=== PATIENT | female | born 2000 | race Caucasian/White ===

== ENCOUNTER 2024-11-03 21:07 | Emergency (ER) | payer MEDICAID, OTHER ==
[~2024-11-03] VITALS: Ht 152.4 cm; Wt 50.2 kg
[2024-11-03] MEDS ORDERED: diphenhdrAMINE HCL 50 MG/1 ML VL IV ONE (21:30)
--- NOTE | 2024-11-03 21:31 | ED.PDOC ---
HPI Allergic reaction HPI Comments C/C of allergic reaction at 2041. Pt states she was at a [employer] restaurant and had food containing milk products. Pt administered Epi-Pen at 2041. VSS. Pt nervous upon Triage assessment. Denies SOB, CP, N/V. Admits to throat itchiness. No urticaria noted. Chief Complaint: Allergic Reaction Time Seen by MD: 21:11 Reviewed Notes: Nurses Notes, Medications, Allergies Allergies: Coded Allergies: Milk (Cow) (Verified Allergy, Severe, 11/03/24) Information Source: Patient Past Medical History PAST MEDICAL HISTORY: Denies Surgical History: Denies all surgeries LUMBER STRAIGHTENED History: No Pertinent LUMBER STRAIGHTENED History Family History Family History: Reviewed,noncontributory to illness Social History Smoker: Non-Smoker Alcohol: Denies ETOH Use Drugs: Denies Drug Use Constitutional: denies: chills, diaphoresis, fatigue, fever, malaise, sweats, weakness, others EENTM: reports: throat swelling; denies: blurred vision, double vision, ear bleeding, ear discharge, ear drainage, ear pain, ear ringing, eye pain, eye redness, hearing loss, mouth pain, mouth swelling, nasal discharge, nose bleeding, nose congestion, nose pain, photophobia, tearing, throat pain, voice changes, others Respiratory: reports: shortness of breath; denies: cough, hemoptysis, orthopnea, SOB at rest, SOB with excertion, stridor, wheezing, others Cardiovascular: denies: chest pain, dizzy spells, diaphoresis, Dyspnea on exertion, edema, irregular heart beat, left arm pain, lightheadedness, palpitations, PND, syncope, others Gastrointestinal: denies: abdomen distended, abdominal pain, blood streaked bowels, constipated, diarrhea, dysphagia, difficulty swallowing, hematemesis, melena, nausea, poor appetite, poor fluid intake, rectal bleeding, rectal pain, vomiting, others Genitourinary: denies: abnormal vagina bleeding, burning, dyspareunia, dysuria, flank pain, frequency, hematuria, incontinence, pain, , vagina discharge, urgency, others Neurological: denies: dizziness, fainting, headache, left sided numbness, left sided weakness, numbness, paresthesia, pre-existing deficit, right sided numbness, right sided weakness, seizure, speech problems, tingling, tremors, weakness, others Musculoskeletal: denies: back pain, gout, joint pain, joint swelling, muscle pain, muscle stiffness, neck pain, others Integumetry: denies: bruises, change in color, change in hair/nails, dryness, laceration, lesions, lumps, rash, wounds, others Allergic/Immunocompromised: denies: Difficulty Healing, Frequent Infections, Hives, Itching, others Hematologic/Lymphatic: denies: anemia, blood clots, easy bleeding, easy bruising, swollen glands, others Endocrine: denies: excessive hunger, excessive sweating, excessive thirst, excessive urination, flushing, intolerance to cold, intolerance to heat, unexplained weight gain, unexplained weight loss, others Psychiatric: denies: anxiety, bipolar disorder, depression, hopeless, panic disorder, schizophrenia, sleepless, suicidal, others Physical Exam General Appearance: No Apparent Distress, Normal HEENT: Normal ENT Inspection, Pharynx Normal, TMs Normal Neck: Full Range of Motion, Non-Tender Respiratory: Chest Non-Tender, Lungs Clear, No Accessory Muscle Use, No Respiratory Distress, Normal Breath Sounds Cardiovascular: No Edema, No JVD, No Murmur, No Gallop, Normal Peripheral Pulses, Tachycardia Breast Exam: Deferred Gastrointestinal: No Organomegaly, Non Tender, No Pulsatile Mass, Normal Bowel Sounds, Soft Genitalia: Deferred Pelvic: Deferred Rectal: Deferred Extremities: Normal capillary refill, Normal inspection, Normal range of motion, Non-tender, No pedal edema Musculoskeletal : Apperance: Normal Neurologic: Alert, No Motor Deficits, Normal Affect, Normal Mood, No Sensory Deficits Cerebellar Function: Normal Reflexes: Normal Skin: Dry, Normal Color, Warm Lymphatic: No Adenopathy Was a procedure done? Was a procedure done?: No Differential diagnosis (all) Differential Diagnosis: Anaphylaxis, Angioedema, Bronchospasm X-Ray, Labs, Meds, VS Vital Signs Date Time Temp Pulse Resp B/P (MAP) Pulse Ox O2 Delivery O2 Flow Rate FiO2 11/03/24 22:25 81 17 96 Room Air* 0 21 11/03/24 22:25 97.6 81 17 118/82 (94) 97 97.6 11/03/24 21:07 97.6 81 17 118/82 (94) 96 97.6 Current Medications Medications (Trade) Dose Ordered Sig/Nikkie Route Start Time Stop Time Status Last Admin Sodium Chloride 1,000 ml @ 1,000 mls/hr Q1H ONCE IV 11/03/24 21:30 11/03/24 22:29 DC 11/03/24 22:12 Methylprednisolone Sodium Succinate (Solu Medrol) 125 mg ONCE ONCE IV 11/03/24 21:30 11/03/24 21:31 DC 11/03/24 22:11 Famotidine (Pepcid Injection) 20 mg ONCE ONCE IV 11/03/24 21:30 11/03/24 21:31 DC 11/03/24 22:12 X-Ray, Labs, Meds, VS Comment Patient given 1 L of normal saline, Solu-Medrol 125 IV push, and Pepcid 20 mg IV push patient stated she took 50 mg of Benadryl prior to arrival along with her epi pen x1. Patient reports improvement in symptoms notes no feeling of throat swelling, chest pain or shortness of breath. She is requesting discharge at this time. Script trial of Medrol Dosepak and Pepcid x6 days. Advised to follow up with her PCP for refill of her EpiPen. Advised to take medications as prescribed side effects discussed. Advised to rest increase p.o. fluids with electrolytes., and avoid milk products ER return precautions given patient indicates understanding agrees with discharge plan of care. Time of 1ST Reevaluation: 21:29 Reevaluation 1ST: Unchanged Time of 2ND Reevaluation: 23:06 Reevaluation 2ND: Improved Patient Education/Counseling: Diagnosis, Treatment, Prognosis, Need For Follow Up Family Education/Counseling: Diagnosis, Treatment, Prognosis, Need For Follow Up Departure 1 Departure Time of Disposition: 23:09 Impression: Primary Impression: Allergic reaction Qualified Codes: T78.40XA - Allergy, unspecified, initial encounter Disposition: HOME / SELF CARE / HOMELESS Condition: Stable e-Prescriptions Famotidine (PEPCID TABLET) 20 Mg Tb 1 TAB PO BID for 6 Days, #12 TAB Prov: GENTRY GRAHAM 11/03/24 Methylprednisolone (Medrol Dosepak) 4 Mg Jared 4 MG PO UD for 6 Days, #21 TAB UAD Prov: GENTRY GRAHAM 11/03/24 Discharged With: Relative (Mother) Critical Care Note Critical Care Time?: No Stability Stability form required: No GENTRY GRAHAM Nov 03, 2024 21:31
[2024-11-03] MEDS: methylPREDNISolone SOD SUCC 125 MG/2 ML VL IV ONE (22:11)
[2024-11-03] MEDS: SODIUM CHLORIDE 0.9% 1,000 ML IV ONE (22:12)
[2024-11-03] MEDS: FAMOTIDINE (10MG/ML) 2ML VL IV ONE (22:12)
[2024-11-03 22:25] VITALS: BP 118/82; PULSE 81; RESP 17; TEMP 97.6; O2SAT 96
[2024-11-03] MEDS ORDERED: METH4PAK PO (23:11)
[2024-11-03] MEDS ORDERED: FAMO20TA10 PO (23:11)
== END 2024-11-03 23:18 | disposition home or self-care (01) ==
LOC: ER 21:07
DX: L29.9 Pruritus, unspecified (principal); T78.1XXA Other adverse food reactions, not elsewhere classified, initial encounter; Z91.011 Allergy to milk products; X58.XXXA Exposure to other specified factors, initial encounter
CPT/HCPCS: 96361; 96374; 96375; 99284; J2919; J3490; J7030

== ENCOUNTER 2024-12-03 13:42 | Emergency (ER) | payer MEDICAID ==
[~2024-12-03] VITALS: Ht 152.4 cm; Wt 85.3 kg
--- NOTE | 2024-12-03 16:24 | ED.PDOC ---
Back pain HPI HPI Comments A 24 year-old female presents to the ED with a chief complaint of lower back pain as of X1 week ago. Patient states pain was spontaneous, constant, with pain increasing when laying or standing. Patient has no further complaints at this time and otherwise denies further associated symptoms of chest pain, hematuria, dysuria, abdominal pain, or chest pain. Chief Complaint: Back Pain Time Seen by MD: 16:19 Reviewed Notes: Medications, Allergies Allergies: Coded Allergies: Milk (Cow) (Verified Allergy, Severe, 11/03/24) Home Meds Active Scripts Cyclobenzaprine Hcl (Cyclobenzaprine Hcl) 10 Mg Tab, 10 MG PO TID for 10 Days, #30 TAB Prov:ARIADNA PAVON MD 12/03/24 Prednisone (Prednisone) 20 Mg Tab, 20 MG PO BID for 5 Days, #10 MG Prov:ARIADNA PAVON MD 12/03/24 Information Source: Patient Mode of Arrival: Ambulatory Timing: Weeks (1) Duration: Since onset Location of Back pain: (R) Lower back, (L) Lower back Severity: Moderate Onset: Spontaneous Past Medical History PAST MEDICAL HISTORY: Denies Surgical History: Denies all surgeries GASOLINE TESTER History: No Pertinent GASOLINE TESTER History Family History Family History: Reviewed,noncontributory to illness Social History Smoker: Non-Smoker Alcohol: Denies ETOH Use Drugs: Denies Drug Use Constitutional: denies: chills, diaphoresis, fatigue, fever, malaise, sweats, weakness, others EENTM: denies: blurred vision, double vision, ear bleeding, ear discharge, ear drainage, ear pain, ear ringing, eye pain, eye redness, hearing loss, mouth pain, mouth swelling, nasal discharge, nose bleeding, nose congestion, nose pain, photophobia, tearing, throat pain, throat swelling, voice changes, others Respiratory: denies: cough, hemoptysis, orthopnea, SOB at rest, shortness of breath, SOB with excertion, stridor, wheezing, others Cardiovascular: denies: chest pain, dizzy spells, diaphoresis, Dyspnea on exertion, edema, irregular heart beat, left arm pain, lightheadedness, palpitations, PND, syncope, others Gastrointestinal: denies: abdomen distended, abdominal pain, blood streaked bowels, constipated, diarrhea, dysphagia, difficulty swallowing, hematemesis, melena, nausea, poor appetite, poor fluid intake, rectal bleeding, rectal pain, vomiting, others Genitourinary: denies: abnormal vagina bleeding, burning, dyspareunia, dysuria, flank pain, frequency, hematuria, incontinence, pain, , vagina discharge, urgency, others Neurological: denies: dizziness, fainting, headache, left sided numbness, left sided weakness, numbness, paresthesia, pre-existing deficit, right sided numbness, right sided weakness, seizure, speech problems, tingling, tremors, weakness, others Musculoskeletal: reports: back pain; denies: gout, joint pain, joint swelling, muscle pain, muscle stiffness, neck pain, others Integumetry: denies: bruises, change in color, change in hair/nails, dryness, laceration, lesions, lumps, rash, wounds, others Allergic/Immunocompromised: denies: Difficulty Healing, Frequent Infections, Hives, Itching, others Hematologic/Lymphatic: denies: anemia, blood clots, easy bleeding, easy bruising, swollen glands, others Endocrine: denies: excessive hunger, excessive sweating, excessive thirst, excessive urination, flushing, intolerance to cold, intolerance to heat, unexplained weight gain, unexplained weight loss, others Psychiatric: denies: anxiety, bipolar disorder, depression, hopeless, panic disorder, schizophrenia, sleepless, suicidal, others All Other Systems: Reviewed and Negative Physical Exam General Appearance: Moderate Distress HEENT: Normal ENT Inspection, PERRL/EOMI Neck: Full Range of Motion, Non-Tender, Normal, Normal Inspection Respiratory: Chest Non-Tender, Lungs Clear, No Accessory Muscle Use, No Respiratory Distress, Normal Breath Sounds Cardiovascular: No Edema, No JVD, No Murmur, No Gallop, Normal Peripheral Pulses, Regular Rate/Rhythm Breast Exam: Deferred Gastrointestinal: No Organomegaly, Non Tender, No Pulsatile Mass, Normal Bowel Sounds, Soft Genitalia: Deferred Pelvic: Deferred Rectal: Deferred Extremities: No calf tenderness, Normal capillary refill, Normal inspection, Normal range of motion, Non-tender, No pedal edema Musculoskeletal : Extremity Location: Back Apperance: Limited ROM, Tenderness: Moderate, Other (For past week spontaneously the patient started having really patient constant back pain can not the bed can sit can not walk can not sleep) Neurologic: Alert, Depressed Affect Cerebellar Function: Normal Reflexes: NOT DONE Skin: Dry, Normal Color, Warm Peripheral Pulses: 1+ carotid (R), 1+ carotid (L) Lymphatic: No Adenopathy Was a procedure done? Was a procedure done?: No Back Pain Differential Dx Differential Diagnosis: DJD, Fracture, Musculoskeletal Pain, Strain X-Ray, Labs, Meds, VS Vital Signs Date Time Temp Pulse Resp B/P (MAP) Pulse Ox O2 Delivery O2 Flow Rate FiO2 12/03/24 13:54 98.2 104 18 114/60 (78) 96 98.2 [place] [address] Ph: [phone] DIAGNOSTIC IMAGING Diagnostic Imaging Report : [id number] Signed PATIENT: KEVIN TAMAYO ACCT: [id number] UNIT: [id number] : 2000 LOC: ER ROOM / BED: / AGE / SEX: 24 / F ADM STATUS: REG ER SERVICE [id number] ORDERING PHYSICIAN: ARIADNA PAVON MD PROCEDURE(s): LS2CT - LS SPINE WO CONTRAST REASON: Severe back pain ORDER NUMBER(s): [id number], ACCESSION NUMBER(s): [id number] EXAM: CT LS SPINE WO CONTRAST INDICATION: Severe back pain TECHNIQUE: Axial images of the lumbar spine have been obtained along with coronal and sagittal reformatted images. CT scans at this facility use dose modulation, iterative reconstruction, and/or weight based dosing when appropriate to reduce radiation dose to as low as reasonably achievable. Dose: CTDI: 32.9. DLP: 103.78 COMPARISON: None FINDINGS: 5 [id number] lumbar-type vertebrae. Straightening of the lumbar lordosis. Vertebral body heights are maintained. No evidence of acute traumatic fractures or spondylolisthesis. Sclerotic focus of the Right posterior rib 12 which may represent a bone island with a blastic lesion not excluded. No significant spinal canal or neural foramina stenosis. The paraspinal muscles are unremarkable. Mild nonspecific lower back Subcutaneous fat edema. IMPRESSION: No evidence of acute traumatic fractures or spondylolisthesis. X-Ray, Labs, Meds, VS Comment Seen in the emergency department eventful patient came in complaining of severe back pain for week spontaneous never had any injuries and she has been very impaired at this time CT of the lumbar spine is normal Patient will be discharged home to follow up with her PCP Time of 1ST Reevaluation: 16:19 Reevaluation 1ST: Unchanged Time of 2ND Reevaluation: 18:13 Reevaluation 2ND: Improved Consultation: PCP Patient Education/Counseling: Diagnosis, Treatment, Prognosis, Need For Follow Up Family Education/Counseling: Diagnosis, Treatment, Prognosis, Need For Follow Up, No Family Present SEPSIS Sepsis Screen Date sepsis recognized/suspect: Dec 03, 2024 Time Sepsis recognized/suspect: 135 Recent Procedure: No On Antibiotic Therapy: No Respiratory Rate >20: No Heart Rate >90: Yes Temp<36 C (96.8 F) or >38.3 C: No SBP <90 or MAP <65 mmHG: No New Acute Mental Status Change: No Is the patient on CPAP, BIPAP,: No Physician Orders Ls Spine Wo Contrast (12/03/24 16:16) Vital Signs Date Time Temp Pulse Resp B/P (MAP) Pulse Ox O2 Delivery O2 Flow Rate FiO2 12/03/24 13:54 98.2 104 18 114/60 (78) 96 98.2 Departure 1 Departure Time of Disposition: 18:14 Impression: Primary Impression: Acute lumbar myofascial strain Disposition: 01 HOME / SELF CARE / HOMELESS Condition: Stable Additional Instructions: Local heat like hot showers no lifting and follow up with your PCP e-Prescriptions Cyclobenzaprine Hcl (Cyclobenzaprine Hcl) 10 Mg Tab 10 MG PO TID for 10 Days, #30 TAB Prov: ARIADNA PAVON MD 12/03/24 Prednisone (Prednisone) 20 Mg Tab 20 MG PO BID for 5 Days, #10 MG Prov: ARIADNA PAVON MD 12/03/24 Discharged With: Self Critical Care Note Critical Care Time?: No Stability Stability form required: No Heart Score Heart Score: Heart Score Response (Comments) Value History N/A 0 EKG N/A 0 Age <45 0 Risk Factors No known risk factors 0 Troponin N/A 0 Total 0 I personally scribed for ARIADNA PAVON MD ([email or web address]) on 12/03/24 at 16:24. Electronically submitted by Mayelin Ortiz ([facility]). I personally scribed for ARIADNA PAVON MD ([email or web address]) on 12/03/24 at 16:25. Electronically submitted by Mayelin Ortiz ([email or web address]). I personally scribed for ARIADNA PAVON MD ([email or web address]) on 12/03/24 at 17:01. Electronically submitted by Mayelin Ortiz ([email or web address]). ARIADNA PAVON MD Dec 03, 2024 16:24
--- NOTE | 2024-12-03 16:57 | DVH ---
EXAM: CT LS SPINE WO CONTRAST INDICATION: Severe back pain TECHNIQUE: Axial images of the lumbar spine have been obtained along with coronal and sagittal reform atted images. CT scans at this facility use dose modulation, iterative reconstruction, and/or weight based dosing when appropriate to reduce radiation dose to as low as reasonably achievable. Dose: CTDI: 32.9. DLP: 103.78 COMPARISON: None FINDINGS: 5 [id number] lumbar-type vertebrae. Straightening of the lumbar lordosis. Vertebral body height s are maintained. No evidence of acute traumatic fractures or spondylolisthesis. Sclerotic focus of t he Right posterior rib 12 which may represent a bone island with a blastic lesion not excluded. No significant spinal canal or neural foramina stenosis. The paraspinal muscles are unremarkable. Mild nonspecific lower back Subcutaneous fat edema. IMPRESSION: No evidence of acute traumatic fractures or spondylolisthesis.
[2024-12-03] MEDS ORDERED: PRED20TA2 PO (18:16)
[2024-12-03] MEDS ORDERED: CYCL-839 PO (18:16)
[2024-12-03 18:50] VITALS: BP 109/69; PULSE 96; RESP 18; TEMP 98.6; O2SAT 95
== END 2024-12-03 18:54 | disposition home or self-care (01) ==
LOC: ER 13:42
DX: S39.012A Strain of muscle, fascia and tendon of lower back, initial encounter (principal); Z91.011 Allergy to milk products; X58.XXXA Exposure to other specified factors, initial encounter; Y93.89 Activity, other specified; Y92.89 Other specified places as the place of occurrence of the external cause; Y99.8 Other external cause status
CPT/HCPCS: 72131